=== PATIENT | male | born 1960 | race Caucasian/White ===

== ENCOUNTER 2017-12-06 09:36 | Inpatient (IN) | payer BC ==
[2017-11-08 10:17] VITALS: BMI 34.0
--- NOTE | 2017-11-08 11:06 | PAT Medication Instructions ---
Service Date Nov 08, 2017. Current Home Medication List Calcium Carbonate (Tums), 1 DOSE PO UD Naproxen (Aleve), 220 MG PO UD PRN for Pain Medication Instructions For Your Scheduled Surgery - Contact your surgeon for instructions: Naproxen (Aleve), 220 MG PO UD PRN for Pain - Hold the following medications the morning of surgery: Calcium Carbonate (Tums), 1 DOSE PO UD If you have any questions please call us at [phone] or [phone] or [phone]
--- NOTE | 2017-11-08 11:53 | DIAGNOSTIC IMAGING REPORT ---
CHEST 2 VIEWS ROUTINE CLINICAL HISTORY: Preoperative chest COMPARISON STUDY: No previous studies for comparison. FINDINGS: The cardiac and mediastinal contours are normal. There is no evidence of focal pulmonary consolidation. There is no evidence of failure. No pleural effusions are visualized.[ There is a linear scar like density at the left lung base. IMPRESSION: No active disease in the chest. Electronically signed by: Lavelle Hendrickson M.D. 11/08/2017 11:51 AM Dictated Date/Time: 11/08/2017 11:51 AM
[2017-11-08 12:04] LABS: HEMATOCRIT 48.9 % (42-52); HEMOGLOBIN 17.3 g/dL (14.0-18.0); MEAN CELL VOLUME 88.3 fL (80-100); MEAN CORPUSCULAR HEMOGLOBIN 31.2 pg (25-34); MEAN CORPUSCULAR HGB CONC 35.4 g/dl (32-36); MEAN PLATELET VOLUME 10.5 fL (7.4-10.4); PLATELET COUNT 191 K/uL (130-400); RED CELL DISTRIBUTION WIDTH CV 13.6 % (11.5-14.5); RED CELL DISTRIBUTION WIDTH SD 44.1 fL (36.4-46.3)
[2017-11-08 12:32] LABS: HEMOGLOBIN A1C 5.1 % (4.5-5.6)
[2017-11-08 14:01] LABS: ALBUMIN 4.2 gm/dl (3.4-5.0); CALCIUM 9.1 mg/dl (8.5-10.1); CREATININE 0.85 mg/dl (0.60-1.40); POTASSIUM 4.7 mmol/L (3.5-5.1)
--- NOTE | 2017-11-10 10:30 | HISTORY & PHYSICAL EXAMINATION ---
DATE OF ADMISSION: 12/06/2017 CHIEF COMPLAINT: Right knee pain. HISTORY OF PRESENT ILLNESS: Mr. Mejia is a 56-year-old male with a multiple year history of pain in his right knee. The patient rates his pain an 8/10. He has pain with his daily activities. He has limited standing and walking tolerance. Pain is worse with weightbearing. The patient has failed injections, NSAIDs, home exercise program over the years. He has failed all conservative treatment and is scheduled for right knee replacement. PAST MEDICAL HISTORY: Hypertension. He denies heart disease, diabetes or DVT. PAST SURGICAL HISTORY: Bladder cancer and lumbar discectomy. SOCIAL HISTORY: The patient denies alcohol or tobacco use. He lives in a 2-story home. 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 FAMILY HISTORY: Positive for DVT, PE in his daughter. Etiology is unknown. MEDICATIONS: None. ALLERGIES: None. REVIEW OF SYSTEMS: See HPI. Ten other systems reviewed, all negative. PHYSICAL EXAMINATION: VITAL SIGNS: Height 6 feet 1, weight 260 pounds, BMI is 34. GENERAL: This is a well-developed, well-nourished male who is alert and oriented x3. Mood and affect are appropriate. HEAD, EYES, EARS, NOSE, AND THROAT: Normocephalic, atraumatic. Mucous membranes are moist and intact. NECK: Supple without lymphadenopathy. HEART: Regular rate and rhythm without murmurs, rubs or gallops. LUNGS: Clear to auscultation without wheezes or rhonchi. ABDOMEN: Soft and nontender. Bowel sounds are equal and active. EXTREMITIES: No ecchymosis, redness or warmth. He has minimal effusion. Neutral alignment. He has no distal edema. Range of motion is from 3-115 degrees with +1 laxity. He is neurovascularly intact with +5/5 strength. X-RAY EXAMINATION: AP and lateral views show joint space narrowing and osteophyte formation. IMPRESSION: Degenerative joint disease, right knee. PLAN: The patient will be admitted for a right total knee arthroplasty. We will plan on aspirin for DVT prophylaxis. The patient will have [facility] for home physical therapy. His PCP is Mr. Richards in [place].
[~2017-12-06] VITALS: Ht 185.4 cm; Wt 117.9 kg
[2017-12-06] VITALS (9 sets, daily range): BP systolic 114–149; BP diastolic 62–90; PULSE 61–73; TEMP 36.2–36.8; O2SAT 95–97; Ht 185.4 cm; Wt 117.9 kg
--- NOTE | 2017-12-06 08:24 | History & Physical Bridge Note ---
H&P Re-Evaluation Bridge Note: I have examined the patient, reviewed the History & Physical and in the interval since the performance of the History & Physical I have noted the following changes of clinical significance: No changes noted
[~2017-12-06 09:36] MED LIST: ACETAMINOPHEN 500 MG TAB PO SCH; BUPIVACAINE 0.25% 30 ML VIAL ONE; BUPIVACAINE 0.5 % 5 MG/1 ML PF 10ML VIAL ONE; CALC500C3 PO; CEFAZOLIN 2000MG IV PUSH 10 ML IV SCH; CeleBREX 200 MG CAP PO SCH; DEXAMETHASONE 4 MG TAB PO SCH; FAMOTIDINE 20 MG TAB PO SCH; FENTANYL CITRATE INJ 50 MCG/1 ML 2 ML VIAL ONE; GABAPENTIN 300 MG CAP PO SCH; LACTATED RINGER'S 1000ML IV SCH; MIDAZOLAM HCL 1 MG/ML 2ML VIAL ONE; NAPR1TAB9 PO; PATIENT'S ALLERGY INFO NEEDS ENTERED SCH; ROPIVACAINE 5MG/ML 30 ML 150 MG, BUPIVACAINE 0.5% MPF INJ 30 ML, EpINEphrine HCL INJ 0.... INFIL SCH
[2017-12-06] MEDS ORDERED: ONDANSETRON INJ 2 MG/ML 2 ML VIAL IV PRN ×2 (10:15→12:15)
[2017-12-06] MEDS ORDERED: FENTANYL CITRATE INJ 50 MCG/1 ML 2 ML VIAL IV PRN (10:15)
[2017-12-06] MEDS ORDERED: EpHEDrine SULFATE INJ 50 MG/ML AMP IV PRN (10:15)
[2017-12-06] MEDS ORDERED: ATROPINE SULFATE 0.1 MG/ML 5ML SYR IV PRN (10:15)
--- NOTE | 2017-12-06 11:17 | History & Physical Bridge Note ---
H&P Re-Evaluation Bridge Note: I have examined the patient, reviewed the History & Physical and in the interval since the performance of the History & Physical I have noted the following changes of clinical significance: Patient with left hip trochanteric bursa will inject the left hip trochanteric bursa at time of surgery diagnosis left hip trochanteric bursitis
[2017-12-06] MEDS ORDERED: ONDANSETRON INJ 2 MG/ML 2 ML VIAL ONE (11:50)
[2017-12-06] MEDS ORDERED: PROPOFOL IV EMULSION 10 MG/ML 20 ML VIAL IV ONE (11:50)
[2017-12-06] MEDS ORDERED: LIDOCAINE HCL 2% 2 ML VIAL (20MG/ML) ONE (11:50)
[2017-12-06] MEDS ORDERED: ORTHO JOINT ANESTHETIC ONE (11:55)
[2017-12-06] MEDS ORDERED: BACITRACIN 50000 UNIT VIAL ONE (11:56)
[2017-12-06] MEDS ORDERED: POVIDONE-IODINE OP SOLN 30 ML BTL ONE (11:56)
[2017-12-06] MEDS: TRANEXAMIC ACID INJ 1,000 MG in SYRINGE 0 ML IV SCH ×2 (11:57→16:54)
[2017-12-06] MEDS ORDERED: LIDOCAINE HCL 1% 20 ML VIAL ONE (12:11)
[2017-12-06] MEDS ORDERED: BUPIVACAINE 0.25% 30 ML VIAL ONE (12:12)
[2017-12-06] MEDS ORDERED: TRIAMCINOLONE ACET 40 MG/ML VIAL ONE (12:13)
[2017-12-06] MEDS ORDERED: MAGNESIUM HYDROXIDE SUSP 30 ML UDC PO PRN (12:15)
[2017-12-06] MEDS ORDERED: SOD PHOSPHATE/SOD BIPHOSPHATE ENEMA 132 ML BTL PR PRN (12:15)
[2017-12-06] MEDS ORDERED: ALUMINUM/MAGNESIUM/SIMETH (MAALOX MAX) 30 ML UDC PO PRN (12:15)
[2017-12-06] MEDS ORDERED: MoRPHine SULFATE 2 MG/ML CARP IV PRN (12:15)
[2017-12-06] MEDS ORDERED: KETOROLAC TROMETHAMINE 30 MG/ML VIAL IV. PRN (12:15)
[2017-12-06] MEDS ORDERED: TRAMADOL HCL 50 MG TAB PO PRN (12:15)
[2017-12-06] MEDS ORDERED: BISACODYL 10 MG SUPP PR PRN (12:15)
[2017-12-06] MEDS ORDERED: ZOLPIDEM TARTRATE 5 MG TAB PO PRN (12:15)
[2017-12-06] MEDS ORDERED: MoRPHine SULFATE 4 MG/ML 1 ML CARP\\VIAL IV PRN (13:30)
[2017-12-06] MEDS ORDERED: MoRPHine SULFATE 10 MG/ML CARP/VIAL IV PRN (13:30)
--- NOTE | 2017-12-06 13:41 | [facility] Operative Report ---
Operative Report Operative Date Dec 06, 2017. Pre-Operative Diagnosis Right knee degenerative joint disease and left hip trochanteric bursitis Post-Operative Diagnosis same as pre-operative Procedure(s) Performed Right Total Knee Arthroplasty-Cemented and Injection of Left Hip Trochanteric Bursa total knee arthroplasty performed utilizing Al & NephBeaker journey 2 patient matched size 8 femur 7 tibia 11 Estela [address] Shelton Butler Ancillary Services Manager Therapy Surgeon(s) MADELIN Wong Estimated Blood Loss 5ml Findings Patient presents with a history of left rotator cuff bursitis as well as right severe end-stage DJD right knee patient for total knee arthroplasty injection ( enteric bursa Specimens Permanent Specimen A) Right knee bone and tissue Complication(s) None Disposition Recovery Room / PACU Indications Patient presents with a left rotator cuff bursitis left hip brainy severe injuries Tri-Chlor metal degenerative joint disease no response to conservative therapy including injections anti-inflammatories relative rest activity modification as well as presents viscus of dictation patient's x-rays revealed evidence of subchondral cystic changes sclerosus osteophytes marginal osteophytes bone to bone varus changes Description of Procedure After proper prepping and draping of the Right lower extremity anterior midline incision was made over the region of the extensor extensor mechanism after meticulous hemostasis was obtained and maintained in subcutaneous tissues a medial parapatellar incision was made The patella was subluxed lateralward the medial lateral gutter were cleaned from any hypertrophic synovitis and scar tissue of the distal femoral block was placed and the distal femoral osteotomy cut was made subsequently the chamfers anterior and posterior osteotomy cuts were made utilizing the 4-in-1 block the tibia was subsequently subluxed anteriorward medial and ateral meniscal remnants were excised in their entirety remnants of the anterior and posterior cruciate ligaments were excised in their entirety excellent exposure of the proximal tibia was obtained the tibial osteotomy guide was placed on the proximal tibial osteotomy cut was made once again the knee was irrigated with copious amounts of sterile saline solution the patella was subsequently everted lateralward thickened scar tissue around the patella was removed the patella was subsequently cut utilizing a freehand technique and was drilled prepared for final preparation and placement of patella socially flexion-extension gaps were checked and the equal and symmetric trials were placed to the appropriate femoral and tibial trials with poly-spacer being placed for equal flexion and extension gaps and full range of motion including extension to 0 and flexion to 140 the trial components after having been taken to recovery range of motion was subsequently removed meticulous hemostasis was obtained and maintained subsequently a knee block injection of joint cocktail including ropivacaine 0.5% 150 mg. Bupivacaine 0.5 % epinephrine 1-200,030 mL's toradol 30 mg dexamethasone 4 mg ketamine 10 mg clonidine 100 micrograms normal saline solution 30 mg was infiltrated into the soft tissues of the posterior knee medial lateral gutters and periosteal synovium special attention was paid to protect neurovascular structures at all times subsequently trial components having been removed the knee was irrigated with sterile saline solution. debris was removed the proximal tibia was subsequently prepared and was made ready for the placement of the tibial component tibial component was also cemented and tamped into position the femoral component was subsequently placed and cemented in the position the patellar component was subsequently cemented in position because hemostasis once again obtained and maintained wound having been thoroughly irrigated with debridement and debridement lavage was performed as well as a medial parapatellar incision closed with #1 Vicryl in interrupted fashion subcutaneous was closed with #2 Vicryl skin was closed with skin clips. PA-C was necessary for prepping and drapping as well as wound closure of deep fascia Sub cutaneous tissue and skin and was necessary for the case. A sterile compressive dressing was placed patient was taken to recovery in stable condition of report dictated by Luke in addition is a left trochanter bursa injection performed utilizing 80 mg Depo-Medrol 4 mL were percent plain Marcaine 20-gauge spinal needle under sterile conditions left trochanter bursa preoperatively I attest to the content of the Intraoperative Record and any orders documented therein. Any exceptions are noted below. I attest to the content of the Intraoperative Record and any orders documented therein. Any exceptions are noted below.
--- NOTE | 2017-12-06 14:49 | DIAGNOSTIC IMAGING REPORT ---
R KNEE 1 OR 2 VIEWS ROUTINE CLINICAL HISTORY: Right knee osteoarthritis. Arthroplasty. COMPARISON: None FINDINGS: Alignment of the total right knee arthroplasty is anatomic. There is no fracture or unexpected radiopaque foreign body. Drains are in place. IMPRESSION: Expected findings following total right knee arthroplasty. Electronically signed by: Chase De La Rosa M.D. 12/06/2017 2:47 PM Dictated Date/Time: 12/06/2017 2:47 PM
--- NOTE | 2017-12-06 14:55 | Anesthesiology Progress Note ---
Anesthesia Post Op Note Date & Time Dec 06, 2017 at 14:54 Vital Signs Pain Intensity: 0 Vital Signs Past 12 Hours Date Time Temp Pulse Resp B/P (MAP) Pulse Ox O2 Delivery O2 Flow Rate FiO2 12/06/17 14:50 64 13 139/74 97 Nasal Cannula 2 12/06/17 14:40 65 17 120/69 95 Nasal Cannula 2 12/06/17 14:30 64 17 125/67 97 Nasal Cannula 2 12/06/17 14:21 36.2 72 18 133/72 97 Nasal Cannula 2 12/06/17 09:56 36.8 63 18 149/90 97 Room Air Notes Mental Status: alert / awake / arousable, participated in evaluation Pt Amnestic to Procedure: Yes Nausea / Vomiting: adequately controlled Pain: adequately controlled Airway Patency, RR, SpO2: stable & adequate BP & HR: stable & adequate Hydration State: stable & adequate Neuraxial Anesthesia: was administered, sensory block is resolving Anesthetic Complications: no major complications apparent
[2017-12-06] MEDS: D5W AND 1/2NSS + 20MEQ KCL 1,000 ML IV SCH (16:53)
[2017-12-06] MEDS: FERROUS GLUCONATE 324 MG TAB PO SCH (16:53)
[2017-12-06] MEDS: SENNA 8.6 MG TAB PO SCH (20:58)
[2017-12-06] MEDS: CEFAZOLIN IV 2,000 MG in SYRINGE 0 ML IV SCH (20:58)
[2017-12-06] MEDS: ASPIRIN 81 MG ECTAB PO SCH (20:59)
[2017-12-06] MEDS: DOCUSATE SODIUM 100 MG CAP PO SCH (20:59)
[2017-12-06] MEDS: ACETAMINOPHEN 500 MG TAB PO SCH (21:11)
[2017-12-07] MEDS: D5W AND 1/2NSS + 20MEQ KCL 1,000 ML IV SCH (01:26)
[2017-12-07 03:59] VITALS: BP 116/64; PULSE 63; TEMP 36.6; O2SAT 96
[2017-12-07] MEDS: CEFAZOLIN IV 2,000 MG in SYRINGE 0 ML IV SCH (04:12)
[2017-12-07] MEDS: ACETAMINOPHEN 500 MG TAB PO SCH ×3 (06:05→22:14)
--- NOTE | 2017-12-07 07:41 | Orthopedic Progress Note ---
Orthopedic Progress Note Date of Service Dec 07, 2017. Subjective Post OP Day: 1 (RIght TKA, left hip troch bursa injection) Reports: feeling well, pain controlled w PO medications, Denies: complaints, chest pain, SOB, nausea / vomiting, light headedness, calf pain Objective calves soft nontender, N/V intact, capillary refill less than 2 sec., dressing C /D/I, A&O x3, toes mobile, hemovac drainage (350cc/8 hours) Date Time Temp Pulse Resp B/P (MAP) Pulse Ox O2 Delivery O2 Flow Rate FiO2 12/07/17 03:59 36.6 63 18 116/64 (81) 96 Room Air 12/06/17 23:55 36.7 65 18 116/62 (80) 95 Room Air 12/06/17 23:45 Room Air 12/06/17 19:59 36.6 61 17 133/73 (93) 96 Room Air 12/06/17 19:50 36.5 70 18 125/69 (87) 97 Nasal Cannula 2.0 12/06/17 18:41 36.2 73 18 140/76 (97) 95 Nasal Cannula 2.0 12/06/17 17:34 36.8 67 19 132/75 (94) 96 Nasal Cannula 2.0 12/06/17 16:28 36.8 67 20 114/71 (85) 95 Nasal Cannula 2.0 12/06/17 15:59 36.7 69 20 142/78 (99) 97 Nasal Cannula 2.0 12/06/17 15:30 Nasal Cannula 2.0 12/06/17 15:30 Nasal Cannula 2.0 12/06/17 15:30 36.4 64 18 123/74 (90) 95 Nasal Cannula 2.0 12/06/17 15:10 36.6 63 21 121/65 98 Nasal Cannula 2 12/06/17 15:00 63 15 139/74 98 Nasal Cannula 2 12/06/17 14:50 64 13 139/74 97 Nasal Cannula 2 12/06/17 14:40 65 17 120/69 95 Nasal Cannula 2 12/06/17 14:30 64 17 125/67 97 Nasal Cannula 2 12/06/17 14:21 36.2 72 18 133/72 97 Nasal Cannula 2 12/06/17 09:56 36.8 63 18 149/90 97 Room Air Laboratory Results 24 Hours: Test 12/07/17 04:44 Assessment & Plan Assessment: POD #1 s/p right TKA, left hip troch bursa injection -pt/ot -dvt proph with jenny/scd/asa -plan for d/c home with HHPT when stable -labs pending -has sensitivity to IBU but able to take all other NSAIDs Discharge Planning Discharge Planning: home with home health DVT Prophylaxis: TEDs, SCDs, ASA Therapy: Physical Therapy
--- NOTE | 2017-12-07 07:46 | Discharge Instructions ---
Discharge Instructions Date of Service Dec 07, 2017. Admission Reason for Admission: Right Knee Osteoarthritis Discharge Discharge Diagnosis / Problem: Right Total knee replacement, left hip troch bursa injection Discharge Goals Goal(s): Decrease discomfort, Improve function, Increase independence Activity Recommendations Activity Limitations: as noted below Weightbearing Status: Right weightbearing (as tolerated) Instructions / Follow-Up Instructions / Follow-Up ACTIVITY RECOMMENDATIONS: SELF CARE INSTRUCTIONS AFTER TOTAL KNEE REPLACEMENT A. You may need to continue a physical therapy program after discharge from the hospital. There are several options available to you. Your doctor will assist you in selecting the best one for you. 1. An out-patient facility 2 to 3 times a week for therapy or home therapy. 2. Continue working on all exercises taught to you in the hospital. Your goals should be to increase bending of your knee to 90 degrees and beyond and to fully straighten your knee. B. You may progress at your own pace from walking with a walker or crutches to a cane; then to no assistive devices. C. Make walking a part of your daily routine. Be up as much as comfortable with rest periods throughout the day. Rest with leg elevation is very important. Use the ice wrap frequently for the first 3-4 weeks. D. There are no restrictions on activities. You may ride in a car, shop, participate in garage attendant and all social activities. E. Wear the long elastic stockings (DINO hose) 20 hours a day for 2 weeks after surgery. They can be removed several times a day for laundering and for a bath. F. You may shower, no tub baths until cleared by your doctor. SPECIAL CARE INSTRUCTIONS: VERY IMPORTANT TO READ AND REVIEW A. There are a few signs you need to watch for after you are home. Call [facility] if you notice any of the followin. Increased severe knee pain. Some pain is expected especially when you exercise. 2. Increased swelling in your leg or knee; pain or swelling of the calf muscle in either lower leg. 3. Any fluid drainage from the incision. 4. Shortness of breath or chest pain. B. Please call [facility] at if you have any concerns or questions about your operation or recovery. The doctor or his nurse will return your call promptly. C. You must take antibiotics before dental work, bladder, bowel or other surgery. Your doctor will provide you with a permanent care to carry describing this precaution. IMPORTANT: * REMEMBER TO TAKE ASPIRIN, 81 MG, TWICE DAILY FOR 4 WEEKS UNLESS OTHERWISE DIRECTED. THIS IS YOUR BLOOD THINNER. * HIGH RISK PATIENTS MAY BE PRESCRIBED A STRONGER BLOOD THINNER. THIS WILL BE PROVIDED AT DISCHARGE. * CALL IF INCREASED PAIN, REDNESS, DRAINAGE OR FEVER GREATER THAT 101. * WEAR DINO HOSE 20 HOURS PER DAY FOR 2 WEEKS. * YOU MAY HAVE A LARGE BAND-AID LIKE DRESSING (SILVERON). THIS WILL REMAIN ON YOUR INCISION FOR 7 DAYS, THEN CAN BE REMOVED. IF INCISION IS LEAKING THROUGH DRESSING, CALL THE OFFICE . DERMABOND Prineo- This is a mesh tape dressing that is covered with glue. It should remain in place until the incision is properly healed, usually 10-14 days. This dressing is designed to naturally slough off. You may trim the excess mesh tape as it peels off. Incision may be briefly wet in a shower. Dry immediately by blotting with a clean, dry towel. Do not bath or swim until instructed by your doctor. Do not scratch, rub, or pick at the dressing. Do not apply any topical ointments or lotions until dressing is completely removed and/or instructed by your doctor. There may be a small piece of suture material at one end of your incision. Do not pull or trim this. If it is bothersome or catching on clothing, you may cover it with a band-aid. FOLLOW UP VISIT: If appointment is not already scheduled: Please call [facility] to make a follow-up appointment for 2 weeks after your surgery at . Current Hospital Diet Patient's current hospital diet: Regular Diet Discharge Diet Recommended Diet: Regular Diet Procedures Procedures Performed: Right Total Knee Arthroplasty-Cemented and Injection of Left Hip Trochanteric Bursa total knee arthroplasty performed utilizing Al & Nephew journey 2 patient matched size 8 femur 7 tibia 11 Estela 32 oval patella Pending Studies Studies pending at discharge: no Laboratory Results Hemoglobin A1c Test 11/08/17 11:17 Range/Units Estimated Average Glucose 100 mg/dl Hemoglobin A1c 5.1 4.5-5.6 % Medical Emergencies . Who to Call and When: Medical Emergencies: If at any time you feel your situation is an emergency, please call 911 immediately. . Non-Emergent Contact Non-Emergency issues call your: Primary Care Provider, Surgeon . "Provider Documentation" section prepared by Bruno Johnston. . VTE Core Measure Inpt VTE Proph given/why not?: [employer] Drug Monitoring Program Search Results: patient reviewed within database, no issues identified
[2017-12-07 07:52] VITALS: BP 132/74; PULSE 60; TEMP 36.8; O2SAT 94
[2017-12-07 08:01] LABS: HEMATOCRIT 38.4 % (42-52); HEMOGLOBIN 13.7 g/dL (14.0-18.0); MEAN CELL VOLUME 86.9 fL (80-100); MEAN CORPUSCULAR HGB CONC 35.7 g/dl (32-36); MEAN PLATELET VOLUME 10.2 fL (7.4-10.4); PLATELET COUNT 196 K/uL (130-400); RED CELL DISTRIBUTION WIDTH CV 13.3 % (11.5-14.5); RED CELL DISTRIBUTION WIDTH SD 42.6 fL (36.4-46.3); WHITE BLOOD COUNT 17.25 K/uL (4.8-10.8)
[2017-12-07 08:09] LABS: INR 1.1 (0.9-1.1)
[2017-12-07 08:16] VITALS: O2SAT 94
[2017-12-07 08:29] LABS: CALCIUM 8.2 mg/dl (8.5-10.1); CREATININE 0.74 mg/dl (0.60-1.40); POTASSIUM 4.2 mmol/L (3.5-5.1)
[2017-12-07] MEDS: DOCUSATE SODIUM 100 MG CAP PO SCH ×2 (08:46→20:49)
[2017-12-07] MEDS: ASPIRIN 81 MG ECTAB PO SCH ×2 (08:46→20:49)
[2017-12-07] MEDS: MULTIVITAMIN TAB PO SCH (08:47)
[2017-12-07] MEDS: FERROUS GLUCONATE 324 MG TAB PO SCH ×3 (08:47→17:41)
[2017-12-07] MEDS: PANTOprazole SOD 40 MG TAB PO SCH (08:47)
--- NOTE | 2017-12-07 08:56 | Anesthesiology Progress Note ---
Anesthesia Post Op Note Date & Time Dec 07, 2017 at 08:56 Vital Signs Pain Intensity: 1.0 Vital Signs Past 12 Hours Date Time Temp Pulse Resp B/P (MAP) Pulse Ox O2 Delivery O2 Flow Rate FiO2 12/07/17 08:16 94 Room Air 12/07/17 07:52 36.8 60 24 132/74 (93) 94 Room Air 12/07/17 07:10 Room Air 12/07/17 03:59 36.6 63 18 116/64 (81) 96 Room Air 12/06/17 23:55 36.7 65 18 116/62 (80) 95 Room Air 12/06/17 23:45 Room Air Notes Mental Status: alert / awake / arousable, participated in evaluation Pt Amnestic to Procedure: Yes Nausea / Vomiting: adequately controlled Pain: adequately controlled Airway Patency, RR, SpO2: stable & adequate BP & HR: stable & adequate Hydration State: stable & adequate Neuraxial Anesthesia: sensory block resolved Anesthetic Complications: no major complications apparent
[2017-12-07] MEDS: OXYCODONE HCL IR 5 MG TAB (IMMEDIATE RELEASE) PO PRN ×3 (11:15→20:48)
[2017-12-07 11:33] VITALS: BP 164/84; PULSE 62; TEMP 36.8; O2SAT 94
[2017-12-07 15:06] VITALS: BP 137/74; PULSE 67; TEMP 36.7; O2SAT 95
[2017-12-07] MEDS: CeleBREX 200 MG CAP PO SCH (20:48)
[2017-12-07] MEDS: SENNA 8.6 MG TAB PO SCH (22:14)
[2017-12-07 22:48] VITALS: BP 129/74; PULSE 60; TEMP 36.6; O2SAT 94
[2017-12-08] MEDS: ACETAMINOPHEN 500 MG TAB PO SCH (05:45)
--- NOTE | 2017-12-08 06:59 | Orthopedic Progress Note ---
Orthopedic Progress Note Date of Service Dec 08, 2017. Subjective Post OP Day: 2 Reports: feeling well, Denies: complaints, chest pain, SOB, nausea / vomiting, light headedness, calf pain, pain controlled w PO medications Objective calves soft nontender, N/V intact, capillary refill less than 2 sec., incision C /D/I, A&O x3, toes mobile Date Time Temp Pulse Resp B/P (MAP) Pulse Ox O2 Delivery O2 Flow Rate FiO2 12/07/17 23:00 Room Air 12/07/17 22:48 36.6 60 16 129/74 (92) 94 Room Air 12/07/17 16:15 Room Air 12/07/17 15:06 36.7 67 18 137/74 (95) 95 Room Air 12/07/17 11:33 36.8 62 22 164/84 (110) 94 Room Air 12/07/17 08:16 94 Room Air 12/07/17 07:52 36.8 60 24 132/74 (93) 94 Room Air 12/07/17 07:10 Room Air Laboratory Results 24 Hours: Test 12/07/17 07:37 Hematocrit 38.4 % Hemoglobin 13.7 g/dL Prothromb Time International Ratio 1.1 Prothrombin Time 11.6 SECONDS Assessment & Plan Assessment: POD #2 s/p right TKA, left hip troch bursa injection -pt/ot -dvt proph with jenny/scd/asa -plan for d/c home with HHPT when stable -has sensitivity to IBU but able to take all other NSAIDs Discharge Planning Discharge Planning: home with home health DVT Prophylaxis: TEDs, SCDs, ASA Therapy: Physical Therapy
[2017-12-08 07:32] VITALS: BP 130/74; PULSE 54; TEMP 36.6; O2SAT 96
[2017-12-08] MEDS ORDERED: RXC5 PO (07:44)
[2017-12-08] MEDS ORDERED: ULT50X PO (07:44)
[2017-12-08] MEDS ORDERED: ASPEC81 PO (07:44)
[2017-12-08] MEDS ORDERED: CLC100 PO (07:44)
[2017-12-08] MEDS ORDERED: CLB200 PO (07:44)
[2017-12-08] MEDS ORDERED: ACET-24 PO (07:44)
[2017-12-08] MEDS ORDERED: ONDA8TAB6 PO (07:44)
[2017-12-08] MEDS: FERROUS GLUCONATE 324 MG TAB PO SCH (08:40)
[2017-12-08] MEDS: MULTIVITAMIN TAB PO SCH (08:40)
[2017-12-08] MEDS: PANTOprazole SOD 40 MG TAB PO SCH (08:41)
[2017-12-08] MEDS: OXYCODONE HCL IR 5 MG TAB (IMMEDIATE RELEASE) PO PRN (08:43)
[2017-12-08] MEDS: CeleBREX 200 MG CAP PO SCH (09:44)
[2017-12-08] MEDS: ASPIRIN 81 MG ECTAB PO SCH (09:44)
[2017-12-08] MEDS: DOCUSATE SODIUM 100 MG CAP PO SCH (09:44)
[2017-12-08 10:12] VITALS: BP 130/74; PULSE 54; TEMP 36.6; O2SAT 96
--- NOTE | 2017-12-08 11:57 | Discharge Summary ---
Orthopedic Discharge Summary Admission Date/Reason Dec 06, 2017 at 12:23 Right Knee Osteoarthritis. Discharge Date/Disposition Dec 08, 2017 Home with services Diagnosis Principal Diagnosis: right knee osteoarthritis, left hip troch bursitis Procedure(s) Performed Right Total Knee Arthroplasty-Cemented and Injection of Left Hip Trochanteric Bursa total knee arthroplasty performed utilizing [employer] [facility] 2 patient matched size 8 femur 7 tibia 11 Estela 32 oval patella Consultations NONE Medication Reconciliation New Medications: Ondansetron Hcl (Zofran) 8 Mg Tab 8 MG PO Q8 PRN for Nausea, #20 TAB Acetaminophen (Sb Non-Aspirin Extra Stre) 500 Mg Tab 1000 MG PO Q8, #63 TAB Aspirin (Aspirin EC Low Dose) 81 Mg Ectab 81 MG PO BID for 30 Days, #60 TAB Celecoxib (Celebrex) 200 Mg Cap 200 MG PO BID for 30 Days, #60 CAP Docusate Sodium (Docusate Sodium) 100 Mg Cap 100 MG PO BID for 10 Days, #20 CAP Oxycodone HCl (Oxycodone HCl) 5 Mg Tab 5-10 MG PO Q4H PRN for Pain, #60 TAB Tramadol HCl (Tramadol HCl) 50 Mg Tab 50-100 MG PO Q4H PRN for Pain, #60 TAB Continued Medications: Calcium Carbonate (Tums) 500 Mg Chew 1 DOSE PO UD Discontinued Medications: Naproxen (Aleve) 220 Mg Tab 220 MG PO UD PRN for Pain, TAB Admission Physical Exam As per Admitting History & Physical. Hospital Course Patient was a same day admission after undergoing a successful right TKA. he tolerated the procedure well. Post-operatively, his activity was progressed and well tolerated. Please refer to daily progress notes and PT notes for complete details. After exam on 12/08/17, patient felt to be stable for discharge home with HHPT. Patient will f/u in the office in 2 weeks for further evaluation including x-rays and incision check, sooner if having any issues or concerns. Below are pertinent labs/studies during their hospital stay: Last Vital Signs Documentation Date Time Temp Pulse Resp B/P (MAP) Pulse Ox O2 Delivery O2 Flow Rate FiO2 12/08/17 10:12 36.6 54 16 96 Room Air 12/08/17 07:32 130/74 (92) 12/06/17 19:50 2.0 Last Resulted CBC 12/07/17 07:37 Last Resulted BMP 12/07/17 07:37 Discharge Instructions ACTIVITY RECOMMENDATIONS: SELF CARE INSTRUCTIONS AFTER TOTAL KNEE REPLACEMENT A. You may need to continue a physical therapy program after discharge from the hospital. There are several options available to you. Your doctor will assist you in selecting the best one for you. 1. An out-patient facility 2 to 3 times a week for therapy or home therapy. 2. Continue working on all exercises taught to you in the hospital. Your goals should be to increase bending of your knee to 90 degrees and beyond and to fully straighten your knee. B. You may progress at your own pace from walking with a walker or crutches to a cane; then to no assistive devices. C. Make walking a part of your daily routine. Be up as much as comfortable with rest periods throughout the day. Rest with leg elevation is very important. Use the ice wrap frequently for the first 3-4 weeks. D. There are no restrictions on activities. 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 E. Wear the long elastic stockings (DINO hose) 20 hours a day for 2 weeks after surgery. They can be removed several times a day for laundering and for a bath. F. You may shower, no tub baths until cleared by your doctor. SPECIAL CARE INSTRUCTIONS: VERY IMPORTANT TO READ AND REVIEW A. There are a few signs you need to watch for after you are home. Call [facility] if you notice any of the followin. Increased severe knee pain. Some pain is expected especially when you exercise. 2. Increased swelling in your leg or knee; pain or swelling of the calf muscle in either lower leg. 3. Any fluid drainage from the incision. 4. Shortness of breath or chest pain. B. Please call [facility] at if you have any concerns or questions about your operation or recovery. The doctor or his nurse will return your call promptly. C. You must take antibiotics before dental work, bladder, bowel or other surgery. Your doctor will provide you with a permanent care to carry describing this precaution. IMPORTANT: * REMEMBER TO TAKE ASPIRIN, 81 MG, TWICE DAILY FOR 4 WEEKS UNLESS OTHERWISE DIRECTED. THIS IS YOUR BLOOD THINNER. * HIGH RISK PATIENTS MAY BE PRESCRIBED A STRONGER BLOOD THINNER. THIS WILL BE PROVIDED AT DISCHARGE. * CALL IF INCREASED PAIN, REDNESS, DRAINAGE OR FEVER GREATER THAT 101. * WEAR DINO HOSE 20 HOURS PER DAY FOR 2 WEEKS. * DERMABOND Prineo- This is a mesh tape dressing that is covered with glue. It should remain in place until the incision is properly healed, usually 10-14 days. This dressing is designed to naturally slough off. You may trim the excess mesh tape as it peels off. Incision may be briefly wet in a shower. Dry immediately by blotting with a clean, dry towel. Do not bath or swim until instructed by your doctor. Do not scratch, rub, or pick at the dressing. Do not apply any topical ointments or lotions until dressing is completely removed and/or instructed by your doctor. There may be a small piece of suture material at one end of your incision. Do not pull or trim this. If it is bothersome or catching on clothing, you may cover it with a band-aid. FOLLOW UP VISIT: If appointment is not already scheduled: Please call [facility] to make a follow-up appointment for 2 weeks after your surgery at .
== END 2017-12-08 13:10 | disposition home health service (06) | DRG 470 ==
LOC: C.ACU 09:36 → C.3E 12:23 → ENRESERV 15:02
PROVIDERS: ADMIT Orthopaedic Surgery; ATTEND Orthopaedic Surgery
PROC: 3E0U33Z Introduction of Anti-inflammatory into Joints, Percutaneous Approach (ICD-10-PCS; principal; 2017-12-06 12:15)
PROC: 0SRC0J9 Replacement of Right Knee Joint with Synthetic Substitute, Cemented, Open Approach (ICD-10-PCS; principal; 2017-12-06 12:15)
DX: M17.11 Unilateral primary osteoarthritis, right knee (principal); M70.62 Trochanteric bursitis, left hip; I10 Essential (primary) hypertension